=== PATIENT | female | born 1940 | race Caucasian/White ===

== ENCOUNTER 2017-03-03 14:02 | Inpatient (IN) | payer MEDICARE ==
[~2017-03-03] VITALS: Ht 167.6 cm; Wt 109.8 kg
[~2017-03-03 14:02] MED LIST: ANTIVERT25 MG PO; ASPIR-LOW81 MG PO; CARAFATE1 GM PO; DILTIAZEM 24HR120 MG PO; LANOXIN125 MCG PO; LEVOTHYROXINE PO; LIPITOR TAB 1010 MG PO; LOPRESSOR 25 MG25 MG PO; PRILOSEC OTC20 MG PO; PROZAC20 MG PO; SINGULAIR10 MG PO
[2017-03-03] MEDS ORDERED: CARTIA XT120 MG PO (17:41)
[2017-03-03] MEDS ORDERED: DITROPAN XL15 MG PO (17:42)
[2017-03-03] MEDS ORDERED: NYSTATIN1 EAC1 TOP (17:52)
[2017-03-04 06:08] LABS: HEMOGLOBIN 10.8 gm/dl (12.3-15.3); RED BLOOD COUNT 3.45 M/UL (4.00-5.10); WHITE BLOOD COUNT 7.9 K/UL (4.5-11.0)
[2017-03-04 06:45] LABS: BUN/CREATININE RATIO 14 (0-10)
[2017-03-05] MEDS ORDERED: LASIX 40 MG TAB40 MG PO (11:02)
[2017-03-05] MEDS ORDERED: TOPROL XL25 MG PO (11:03)
== END 2017-03-05 11:56 | disposition home or self-care (01) | DRG 292 ==
LOC: CCU 14:02
PROVIDERS: Internal Medicine Cardiovascular Disease; ADMIT Internal Medicine
DX: I50.33 Acute on chronic diastolic (congestive) heart failure (principal); I24.8 Other forms of acute ischemic heart disease; I10 Essential (primary) hypertension; E78.5 Hyperlipidemia, unspecified; J44.9 Chronic obstructive pulmonary disease, unspecified; E66.01 Morbid (severe) obesity due to excess calories; Z95.2 Presence of prosthetic heart valve; Z79.82 Long term (current) use of aspirin; Z88.2 Allergy status to sulfonamides; Z82.3 Family history of stroke; Z83.3 Family history of diabetes mellitus; Z82.49 Family history of ischemic heart disease and other diseases of the circulatory system; Z68.38 Body mass index [BMI] 38.0-38.9, adult; Z88.5 Allergy status to narcotic agent
CPT/HCPCS: ECHO; 36415; 80048; 82550; 82553; 83735; 84484; 85025; 93005; 93306; 94640; 94664; J1644; J1940